=== PATIENT | male | born 1985 | race Caucasian/White ===

== ENCOUNTER 2023-07-16 01:26 | Emergency (ER) | payer SELFPAY ==
[~2023-07-16] VITALS: Ht 182.9 cm; Wt 159.1 kg
[2023-07-16 01:39] VITALS: BP 144/102; PULSE 113; RESP 16; TEMP 98.3; O2SAT 97
== END 2023-07-16 01:52 ==
LOC: ER 01:27
DX: Z00.00 Encounter for general adult medical examination without abnormal findings (principal)
CPT/HCPCS: 99283